=== PATIENT | male | born 1995 | race Caucasian/White ===

== ENCOUNTER 2019-05-03 10:04 | Day surgery (SDC) | payer BC ==
[~2019-05-03] VITALS: Ht 188 cm; Wt 86.7 kg
[2019-05-03] VITALS (10 sets, daily range): BP systolic 111–124; BP diastolic 66–75; PULSE 62–72; TEMP 97.8–98.4
[2019-05-03] MEDS ORDERED: ZOLOFT 100MG100 MG PO (10:59)
--- NOTE | 2019-05-03 11:15 | NUR ---
VERBALIZED BEING ANXIOUS- RECEIVED VALIUM 10MG
--- NOTE | 2019-05-03 14:45 | NUR ---
Patient alert and oriented, answers questions appropriately. See assessment. Nielsen catheter in place connected to moderate rate CBI, urine clear yellow. C/o pain to urethra 10/17. No other c/o at this time.
--- NOTE | 2019-05-03 14:54 | NUR ---
Pt has returned from PACU and is settled in bed. Urine with CBI is clear. Pt teaching done and printed information provided. Mother is also present and pt is ok with mother hearing teaching as well. Nielsen catheter drained and clamped. Mitomycin 40mg was verified correct rj Fitzgerald RN by comparing printed order with printed label. Pt identity verified at bedside. Signage placed regarding HD precautions to be followed. Wearing PPE, mitomycin was instilled into bladder and tolerated well by pt. Report to Yajaira SERNA. Pt is aware that will need to turn every 15 minutes to allow full coverage of bladder by mitomycin.
--- NOTE | 2019-05-03 15:35 | NUR ---
Pt reports at this check that he is starting to feel like he has a full bladder. Encouraged to tolerate this feeling as long as he can but we are just approaching an hour dwell time now. Given my direct line to call if reaches point that we must release but encouraged to tolerate as long as possible. Pt verbalizes understanding. He has been repositioning on his own as instructed.
--- NOTE | 2019-05-03 16:17 | NUR ---
Pt called to report he couldn't stand his full bladder any longer and requests that clamped catheter be released. This was done at 1550 and immediately flow of pink/red urine was returned. 300 ml of pink/red urine with small clots were returned. CBI was restarted and urine quickly transitioned to light pink. Nielsen cath bag was changed and chemotherapy precautions were followed and remain in place for 24 hours. Pt verbalizes understanding. Printed information was given earlier regarding precautions and reviewed withi pt and his mother. Report called to Yajaira SERNA.
--- NOTE | 2019-05-03 19:50 | NUR ---
Report received. Assumed care for shift engineer. Assessment complete. VS stable. CBI running at a slow rate-light pink return/few clots noted. Denies pain/nausesa/shortness of breath. Tolerating PO. Will INT after this IV fluid bag infused. Plan of care discussed for CBI through night. Verbalizes understanding. Denies questions or concerns. Encouraged to call for increased pain. Friends at bedside. Call light in reach. Bed in low/wheels locked. Will monitor.
--- NOTE | 2019-05-03 23:00 | NUR ---
Called to room due to pain level. Rating pain to bladder/back /10. Described bladder pain as a spasm-states it feels as if he is trying to pass something. Tylenol/Levsin given per dr order with explanation on action. Verbalizes understanding. CBI still at a slow rate with light pink return. No current clots noted. Will monitor.
[2019-05-04] VITALS: BP 115/63; PULSE 59; TEMP 98.2
--- NOTE | 2019-05-04 | NUR ---
Pain reassessment complete-rating pain 6/10 to back/urethra/bladder. States Levsin has helped some and lidocaine gel didnt help at all. Morphine 2mg given IV per dr order. Will monitor.
--- NOTE | 2019-05-04 00:30 | NUR ---
Resting eyes closed. Audible snoring. CBI at slow rate-light pink return-no clots noted.
[2019-05-04 04:44] VITALS: BP 109/58; PULSE 71; TEMP 97.6
[2019-05-04 07:18] VITALS: BP 109/55; PULSE 53; TEMP 97.6
--- NOTE | 2019-05-04 09:50 | NUR ---
Assessment completed, alert/oriented, vital signs stable, reprots pain is controlled at this time, CBI running slowly, output is clear slightly pink tinged, heart RRR, lungs CTA, no respd.difficulty no, resp.difficulty noted, denies needs, discussed plan of care with / will prime and pull cather and do 6 bottle routine, anticipate discharge later today
[2019-05-04 11:29] VITALS: BP 117/65; PULSE 64; TEMP 98.1
--- NOTE | 2019-05-04 16:29 | NUR ---
Prime and pulled cather/ 6 bottle looked realyl good with no clots noted and clear urine, got discharge order from , Discharge instructions reviewed with the patient, instructed to follow up as scheduled/ call office Monday to confirm apponitment date/time, instructed to drink plent of fluid/ water, instructed to not over exert and take it easy fro the weekend, IV removed, he is ambulatory and I escorted him to the door
== END 2019-05-04 16:31 | disposition home or self-care (01) ==
LOC: SDCO 10:04 → SURG 14:51 → SDCO 05-04 16:31
DX: C67.9 Malignant neoplasm of bladder, unspecified (principal); R31.0 Gross hematuria; F98.8 Other specified behavioral and emotional disorders with onset usually occurring in childhood and adolescence; J45.909 Unspecified asthma, uncomplicated; K58.9 Irritable bowel syndrome, unspecified; Z88.0 Allergy status to penicillin; Z88.8 Allergy status to other drugs, medicaments and biological substances; Z82.49 Family history of ischemic heart disease and other diseases of the circulatory system; Z80.8 Family history of malignant neoplasm of other organs or systems
CPT/HCPCS: OP; J0690; J1100; J2270; J2405; J2704; J3010; J7120; J9280